=== PATIENT | male | born 1995 | race Two or more races ===

== ENCOUNTER 2021-09-17 20:37 | Emergency (ER) | payer MEDICAID, OTHER ==
[2021-09-17] MEDS ORDERED: methylPREDNISolone SOD SUCC 125 MG/2 ML VL IM ONE (21:15)
[2021-09-17] MEDS ORDERED: PRED20TA2 PO (21:26)
[2021-09-17 22:16] VITALS: BP 149/99
== END 2021-09-17 22:42 | disposition home or self-care (01) ==
LOC: ER 20:37
DX: L50.0 Allergic urticaria (principal); R94.31 Abnormal electrocardiogram [ECG] [EKG]; Z88.6 Allergy status to analgesic agent
CPT/HCPCS: 93005; 96372; 99283; J2930